=== PATIENT | female | born 1995 | race Caucasian/White ===

== ENCOUNTER 2020-08-27 14:24 | Inpatient (IN) | payer OTHER ==
[~2020-08-27] VITALS: Ht 165.1 cm; Wt 74.8 kg
--- NOTE | ~2020-08-27 | OP ---
PATIENT NAME: MIS HARRIS MEDICAL RECORD: [id number] :96 LOCATION:[facility] D.[id number] ADMISSION DATE:09/15/20 SURGEON: DEVENDRA LONGO MD DATE OF OPERATION: 09/15/2020 PREOPERATIVE DIAGNOSES: 1. Term intrauterine at 39 weeks. 2. The patient desires section. POSTOPERATIVE DIAGNOSES: 1. Term intrauterine at 39 weeks. 2. The patient desires section. SURGEON: Devendra Longo. ANESTHESIA: Regional via spinal. IV FLUIDS: Per anesthesia record. ESTIMATED BLOOD LOSS: 1000 mL. FINDINGS: Viable , Apgars 9 at 1 and 9 at 5. Placenta delivered manually intact, 3-vessel cord noted. Normal adnexa bilaterally PROCEDURE: Primary low transverse section. SPECIMENS: Included placenta and cord for gases. COMPLICATIONS: None apparent. PROCEDURE IN DETAIL: The patient was taken to the operating room where regional anesthesia was achieved without any difficulty. The patient was then prepped and draped in normal sterile fashion in the dorsal supine position. SCDs were on and functioning normally. A Barnett catheter had been placed and was draining freely. The patient was prepped and draped. A Pfannenstiel skin incision was made and extended down to the underlying subcutaneous fat to the level of the fascia. The fascia was then excised in the midline and extended bilaterally using the Baptiste scissors. The superior and inferior aspect of the fascial incision was then grasped with Goldie clamps times 2, tented upward, and sharply dissected from the underlying rectus muscle using the Baptiste scissors and the Bovie cautery. The peritoneum was entered sharply at the superior aspect of the incision and the peritoneal incision was extended bilaterally and inferiorly under direct visualization of the bladder. Bladder blade was then placed into the pelvis and a bladder flap was created by excising the anterior leaf of the broad ligament across the lower uterine segment. The bladder flap was further developed bluntly and the bladder blade was replaced over the bladder flap. A low transverse incision was made and extended using the Pelosi method. The vertex was delivered atraumatically followed by the body. The was bulb suctioned upon delivery. Cord was clamped times 2, cut and the infant was handed to the awaiting nursery team. Cord was then obtained for gases and the placenta was removed manually intact. The uterus was vigorously massaged and cleared of all clots and debris until good uterine tone was noted. The uterine incision was repaired with 0 Vicryl in a running locked fashion times 2 with good hemostasis noted. Attention was then turned to the posterior cul-de-sac, which was thoroughly irrigated. Attention was then turned to the bilateral OPERATIVE REPORT [id number] MIS HARRIS fallopian tubes, which were grasped with Conroy clamps, tented upward, and a defect was made in the mesosalpinx. The midportion of the tube was then clamped with a Paris clamp and the distal mesosalpinx was clamped with a Paris clamp, it was performed bilaterally and a distal salpingectomy was performed. The distal mesosalpinx was then oversewn with 2-0 Vicryl times 2 and the proximal tubal stumps were oversewn with 2-0 Vicryl sutures with good hemostasis noted. Uterus was then returned to the pelvis. The anterior cul-de-sac was then thoroughly irrigated. Counts were correct times 2 for needles, sponges, and instruments. The fascia was repaired with 0 loop PDS times 1. Skin repaired with jasmeet. The patient tolerated the procedure well and was transferred to postanesthesia recovery stable without incident. TRANSINT:[id number] Voice Confirmation ID: [id number] DOCUMENT ID: [id number] DEVENDRA LONGO MD CC: [id number] DICTATION DATE: 09/25/20 1333 REHABILITATION CASEWORKER: 09/25/20 1353 DIS IN 09/17/20 [facility] [address] [id number]
[2020-09-15 05:50] LABS: HEMATOCRIT 25.7 % (36.0-48.0); HEMOGLOBIN 8.3 g/dL (12-16); MCH 27.8 pg (26.0-34.0); MCHC 32.3 g/dL (31.0-37.0); MEAN PLATELET VOLUME 11.6 fL (7.4-10.4); RBC 2.99 10x6/uL (4.00-5.40); RDW 14.8 % (11.5-14.5); WBC 8.2 10x3/uL (4.8-10.8)
[2020-09-15 09:05] VITALS: Ht 165.1 cm; Wt 74.8 kg
[2020-09-15 11:49] LABS: BASOPHILS 0 % (0-2); EOSINOPHILS 0.7 % (0-7); IMMATURE GRANULOCYTES 0.3 % (0-5); LYMPHOCYTES 15.7 % (15-50); MCH 28.1 pg (26.0-34.0); MCHC 32.6 g/dL (31.0-37.0); MCV 86.1 fL (80.0-100.0); MEAN PLATELET VOLUME 11.4 fL (7.4-10.4); NEUTROPHIL ABS# 10.59 10x3/uL (1.56-6.13); NEUTROPHILS 79.3 % (40-80); RDW 14.3 % (11.5-14.5)
[2020-09-15 11:54] LABS: WBC 13.4 10x3/uL (4.8-10.8)
[2020-09-15 11:55] LABS: HEMOGLOBIN 11.1 g/dL (12-16); PLATELET COUNT 195 10x3/uL (130-400); RBC 3.95 10x6/uL (4.00-5.40)
[2020-09-15 19:17] VITALS: BP 114/57
[2020-09-16 00:30] VITALS: BP 114/73
[2020-09-16 06:11] LABS: RAPID PLASMA REAGIN Non Reactive (Non Reactive)
[2020-09-16 07:47] LABS: BASOPHILS 0 % (0-2); EOSINOPHILS 1.6 % (0-7); HEMATOCRIT 31.9 % (36.0-48.0); HEMOGLOBIN 10.4 g/dL (12-16); IMMATURE GRANULOCYTES 0.2 % (0-5); LYMPHOCYTES 15.4 % (15-50); MCH 27.7 pg (26.0-34.0); MCHC 32.6 g/dL (31.0-37.0); MCV 85.1 fL (80.0-100.0); MONOCYTES 4.3 % (2-11); NEUTROPHIL ABS# 7.61 10x3/uL (1.56-6.13); NEUTROPHILS 78.5 % (40-80); PLATELET COUNT 171 10x3/uL (130-400); RBC 3.75 10x6/uL (4.00-5.40); RDW 14.5 % (11.5-14.5)
[2020-09-16 07:54] VITALS: BP 115/55
[2020-09-16 07:56] LABS: WBC 9.7 10x3/uL (4.8-10.8)
[2020-09-16 12:14] VITALS: BP 118/57
[2020-09-16 15:55] VITALS: BP 129/73
[2020-09-16 20:00] VITALS: BP 138/81
[2020-09-17 09:28] VITALS: BP 142/68
[2020-09-17 09:35] VITALS: BP 139/64
[2020-09-17 09:43] VITALS: BP 130/64
[2020-09-17 09:46] VITALS: BP 119/71
[2020-09-17 09:49] VITALS: BP 120/70
[2020-09-17] MEDS ORDERED: HYDROCODON-ACE1 EA10 PO (13:03)
[2020-09-17] MEDS ORDERED: IBUPROFEN600 MG PO (13:04)
== END 2020-09-17 15:30 | disposition home or self-care (01) | DRG 785 ==
LOC: D.LD 09-15 05:04 → D.SDCHOLD 09-15 07:00 → D.LD 09-17 15:30
PROVIDERS: ADMIT Obstetrics & Gynecology; ATTEND Obstetrics & Gynecology
PROC: 10D00Z1 Extraction of Products of Conception, Low, Open Approach (ICD-10-PCS; principal; 2020-09-15 07:30)
PROC: 0UB70ZZ Excision of Bilateral Fallopian Tubes, Open Approach (ICD-10-PCS; 2020-09-15 07:30)
DX: O36.8330 Maternal care for abnormalities of the fetal heart rate or rhythm, third trimester, not applicable or unspecified (principal); Z3A.38 38 weeks gestation of pregnancy; Z37.0 Single live birth; Z30.2 Encounter for sterilization

== ENCOUNTER 2020-09-19 10:33 | Emergency (ER) | payer OTHER ==
[~2020-09-19] VITALS: Ht 165.1 cm; Wt 70.5 kg
[~2020-09-19 10:33] MED LIST: HYDROCODON-ACE1 EA10 PO; IBUPROFEN600 MG PO
[2020-09-19 10:38] VITALS: BP 127/73; Ht 165.1 cm; Wt 70.5 kg
[2020-09-19 12:05] LABS: BASOPHILS 0.2 % (0-2); EOSINOPHILS 2.8 % (0-7); HEMATOCRIT 33.6 % (36.0-48.0); HEMOGLOBIN 10.9 g/dL (12-16); IMMATURE GRANULOCYTES 0.4 % (0-5); LYMPHOCYTE ABS# 1.52 10x3/uL (1.18-3.74); LYMPHOCYTES 17.8 % (15-50); MCH 27.7 pg (26.0-34.0); MCHC 32.4 g/dL (31.0-37.0); MCV 85.3 fL (80.0-100.0); MEAN PLATELET VOLUME 10.1 fL (7.4-10.4); MONOCYTES 5.4 % (2-11); NEUTROPHIL ABS# 6.28 10x3/uL (1.56-6.13); NEUTROPHILS 73.4 % (40-80); RBC 3.94 10x6/uL (4.00-5.40); RDW 14.2 % (11.5-14.5); WBC 8.6 10x3/uL (4.8-10.8)
[2020-09-19 12:17] LABS: PLATELET COUNT 310 10x3/uL (130-400)
[2020-09-19 12:19] LABS: CALC OSMOLALITY 273 mosm/kg (275-300); CALCIUM 8.4 mg/dL (8.5-10.1); CARBON DIOXIDE 23.7 mmol/L (21.0-32.0); CHLORIDE - SERUM 105 mmol/L (98-107); CREATININE - SERUM 0.7 mg/dL (0.6-1.3); GLUCOSE 88 mg/dL (74-106); POTASSIUM - SERUM 4.1 mmol/L (3.5-5.1); SODIUM 138 mmol/L (136-145); UREA NITROGEN 10 mg/dL (7-18); eGFR NON AFRICAN AMERICAN > 90 mL/min (90-120)
[2020-09-19 12:38] LABS: ALBUMIN 2.1 g/dL (3.4-5.0); ALKALINE PHOSPHATASE 127 U/L (30-120); ALT (SGPT) 23 U/L (10-68); BILIRUBIN - TOTAL 0.14 mg/dL (0.2-1.3); PROTEIN - SERUM 6.6 g/dL (6.4-8.2)
[2020-09-19] MEDS ORDERED: ACETAMINOPHEN500 M1 PO (12:49)
[2020-09-19] MEDS ORDERED: CYCLOBENZAPRINE10 MG PO (12:49)
[2020-09-19] MEDS ORDERED: IBUPROFEN800 MG PO (12:49)
== END 2020-09-19 14:00 | disposition home or self-care (01) ==
LOC: D.ER 10:33
PROVIDERS: Family Medicine
DX: R51.9 Headache, unspecified (principal); M54.2 Cervicalgia

== ENCOUNTER → 2020-09-29 14:29 | Outpatient (CLI) | payer OTHER ==
[2020-09-19 10:38] VITALS: BMI 25.8
[~2020-09-29 14:29] MED LIST changes: +ACETAMINOPHEN500 M1 PO; +CYCLOBENZAPRINE10 MG PO; +IBUPROFEN800 MG PO
== END | disposition home or self-care (01) ==
LOC: D.RAD 14:29
PROVIDERS: ATTEND Obstetrics & Gynecology
DX: M53.3 Sacrococcygeal disorders, not elsewhere classified (principal)